=== PATIENT | female | born 1990 | race American Indian/Alaskan Native ===

== ENCOUNTER 2018-03-19 17:12 | Emergency (ER) | payer SELFPAY ==
[2018-03-19 17:21] VITALS: BP 144/67
[2018-03-19 17:43] LABS: Basophils % (Auto) 0.8 % (0.0-1.8); Eosinophils # (Auto) 0.1 K/mm3 (0.0-0.4); Eosinophils % (Auto) 1.8 % (0.0-4.3); Hematocrit 37.2 % (30.3-42.9); Hemoglobin 12.9 gm/dl (10.1-14.3); Lymphocytes # (Auto) 2.2 K/mm3 (1.2-5.4); Lymphocytes % (Auto) 41.2 % (13.4-35.0); Mean Corpuscular HGB Conc 35 % (30-34); Mean Corpuscular Hemoglobin 32 pg (28-32); Mean Corpuscular Volume 93 fl (79-97); Monocytes # (Auto) 0.3 K/mm3 (0.0-0.8); Monocytes % (Auto) 6.3 % (0.0-7.3); Platelet Count 238 K/mm3 (140-440); Red Blood Count 3.99 M/mm3 (3.65-5.03); Red Cell Distribution Width 12.6 % (13.2-15.2)
[2018-03-19 18:04] LABS: Bilirubin,Urine NEG (Negative); Blood,Urine SM (Negative); Color,Urine Straw (Yellow); Protein,Urine <15 mg/dL mg/dL (Negative); RBC,Urine < 1.0 /HPF (0.0-6.0); Urobilinogen,Urine < 2.0 mg/dL (<2.0); WBC,Urine < 1.0 /HPF (0.0-6.0)
--- NOTE | 2018-03-19 20:17 | Ultrasound Report ---
FINAL REPORT EXAM: US OB < = 14 WEEKS FETUS HISTORY: bleeding with TECHNIQUE: Transabdominal and transvaginal sonography of the pelvis. PRIORS: None. FINDINGS: There is an intrauterine containing a yolk sac, but no pole identified at this time. Ultrasound estimated gestational age is 5 weeks 5 days. Ultrasound estimated date of confinement is 14 November 2018. The right ovary measures 2.7 x 1.8 x 1.8 cm and is grossly unremarkable. The left ovary measures 3.1 x 2.2 x 3.1 cm and contains an ovoid, hypoechoic or complex cystic focus measuring approximately 1.6 cm. Remainder of uterus and adnexa grossly unremarkable. IMPRESSION: 1. Intrauterine of uncertain viability. Correlation with serial beta-hCG levels and follow-up ultrasound may help in further evaluation. 2. Probable functional cystic change in the left ovary. Clinical correlation and followup pelvic ultrasound in 6-10 weeks advised to document resolution.
--- NOTE | 2018-03-19 20:44 | Emergency Department Report ---
ED Female HPI - General Chief complaint: Vaginal Bleeding Stated complaint: 6 WEKKS PREG/BLEEDING Time Seen by Provider: 03/19/18 20:32 Source: patient Mode of arrival: Ambulatory Limitations: No Limitations - History of Present Illness Initial comments: Patient 27-year-old [place] female who presents for vaginal bleeding 2 days patient advised me in 6 weeks last menstrual period was 02/09/2019 patient is 78 symptoms including vaginal bleeding no pain mild back pain 3/10 or cramping no fever no chills bleeding described as light pink spotting. MD Complaint: vaginal bleeding Onset/Timin -: days(s) Radiation: non-radiating Severity: mild, moderate Severity scale (0 -10): 2 Quality: aching Consistency: intermittent Improves with: none Worsens with: none Are you Now?: Yes Last Menstrual Period: 02/09/18 EDC: 11/16/18 Associated Symptoms: vaginal bleeding. denies: vaginal discharge, abdominal pain, nausea/vomiting, fever/chills, headaches, loss of appetite, dysuria, hematuria, shortness of breath, syncope, weakness - Related Data Sexually active: Yes : 1 Para: 0 A: 0 Previous Rx's Medication Instructions Recorded Last Taken Type Acetaminophen 650 mg PO QID PRN #60 tablet 03/19/18 Unknown Rx Allergies Allergy/AdvReac Type Severity Reaction Status Date / Time No Known Allergies Allergy Verified 03/19/18 17:14 ED Review of Systems ROS: Stated complaint: 6 WEKKS PREG/BLEEDING Other details as noted in HPI Constitutional: denies: chills, fever Eyes: denies: eye pain, eye discharge, vision change ENT: denies: ear pain, throat pain Respiratory: denies: cough, shortness of breath, wheezing Cardiovascular: denies: chest pain, palpitations Endocrine: no symptoms reported Gastrointestinal: abdominal pain. denies: nausea, vomiting, diarrhea Genitourinary: other (pt defers vaginal exam to obgyn). denies: urgency, dysuria, frequency, hematuria, discharge, dyspareunia Musculoskeletal: denies: back pain, joint swelling, arthralgia Skin: denies: rash, lesions Neurological: as per HPI Psychiatric: denies: anxiety, depression Hematological/Lymphatic: denies: easy bleeding, easy bruising ED Past Medical Hx - Past Medical History Previous Medical History?: No - Surgical History Past Surgical History?: Yes Additional Surgical History: tonsilectomy - Social History Smoking Status: Never Smoker Substance Use Type: Alcohol - Medications Home Medications: Home Medications Medication Instructions Recorded Confirmed Last Taken Type Acetaminophen 650 mg PO QID PRN #60 tablet 03/19/18 Unknown Rx ED Physical Exam - General Limitations: No Limitations General appearance: alert, in no apparent distress - Head Head exam: Present: atraumatic, normocephalic - Eye Eye exam: Present: normal appearance - ENT ENT exam: Present: mucous membranes moist - Neck Neck exam: Present: normal inspection, full ROM. Absent: lymphadenopathy, thyromegaly - Respiratory Respiratory exam: Present: normal lung sounds bilaterally. Absent: respiratory distress - Cardiovascular Cardiovascular Exam: Present: regular rate, normal rhythm. Absent: systolic murmur, diastolic murmur, rubs, gallop - GI/Abdominal GI/Abdominal exam: Present: soft, tenderness (mild superpubic to deep palpation ), normal bowel sounds. Absent: distended, guarding, rebound, rigid, organomegaly, mass, bruit, pulsatile mass, hernia - Rectal Rectal exam: Present: deferred - External exam: Present: other (deferree per patient ) - Extremities Exam Extremities exam: Present: normal inspection, full ROM, normal capillary refill. Absent: tenderness - Back Exam Back exam: Present: normal inspection, full ROM. Absent: tenderness, CVA tenderness (R), CVA tenderness (L), muscle spasm, paraspinal tenderness, vertebral tenderness - Neurological Exam Neurological exam: Present: alert, oriented X3, CN II-XII intact, normal gait, reflexes normal - Psychiatric Psychiatric exam: Present: normal affect, normal mood - Skin Skin exam: Present: warm, dry, intact, normal color. Absent: rash ED Course Vital Signs 03/19/18 17:14 Temperature 98.6 F Pulse Rate 77 Respiratory 18 Rate Blood Pressure 144/67 O2 Sat by Pulse 100 Oximetry ED Medical Decision Making - Lab Data Result diagrams: 03/19/18 17:26 Laboratory Tests 03/19/18 03/19/18 03/19/18 17:23 17:26 17:26 WBC 5.3 RBC 3.99 Hgb 12.9 Hct 37.2 MCV 93 MCH 32 MCHC 35 H RDW 12.6 L Plt Count 238 Lymph % (Auto) 41.2 H [place] % (Auto) 6.3 Eos % (Auto) 1.8 Baso % (Auto) 0.8 Lymph # 2.2 [place] # 0.3 Eos # 0.1 Baso # 0.0 Seg Neutrophils % 49.9 Seg Neutrophils # 2.6 HCG, Quant 4617 H Urine Color Urine Turbidity Urine pH Ur Specific [place] Urine Protein Urine Glucose (UA) Urine Ketones Urine Blood Urine Nitrite Urine Bilirubin Urine Urobilinogen Ur Leukocyte Esterase Urine WBC (Auto) Urine RBC (Auto) Blood Type O POSITIVE Antibody Screen Negative 03/19/18 17:35 WBC RBC Hgb Hct MCV MCH MCHC RDW Plt Count Lymph % (Auto) [place] % (Auto) Eos % (Auto) Baso % (Auto) Lymph # [place] # Eos # Baso # Seg Neutrophils % Seg Neutrophils # HCG, Quant Urine Color Straw Urine Turbidity Clear Urine pH 7.0 Ur Specific [place] 1.002 L Urine Protein <15 mg/dl Urine Glucose (UA) Neg Urine Ketones Neg Urine Blood Sm Urine Nitrite Neg Urine Bilirubin Neg Urine Urobilinogen < 2.0 Ur Leukocyte Esterase Neg Urine WBC (Auto) < 1.0 Urine RBC (Auto) < 1.0 Blood Type Antibody Screen - Radiology Data Radiology results: report reviewed, image reviewed US: IUP of uncertain viability , recommend serial hcg and US, left ovarian cyst - Medical Decision Making CBC is normal abdominal pain is minimal ultrasound IUP unknown gestational viability O sac is identified hCG Quant 4700 left ovarian cyst noted UA is clean plan follow up with [facility] for serial hCGs and ultrasound discussed same with the patient including diagnosis of threatened miscarriage patient verbalizes understanding and agreement with same patient will be DC'd home stable condition at this time will return immediately should symptoms worsen Critical care attestation.: If time is entered above; I have spent that time in minutes in the direct care of this critically ill patient, excluding procedure time. ED Disposition Clinical Impression: Vaginal bleeding during , Threatened miscarriage in early Ovarian cyst Qualifiers: Laterality: left Qualified Code(s): N83.202 - Unspecified ovarian cyst, left side Disposition: DC TO HOME OR SELFCARE Is pt being admited?: No Does the pt Need Aspirin: No Condition: Good Instructions: Threatened Miscarriage (ED), Ovarian Cyst (ED) Prescriptions: Acetaminophen 650 mg PO QID PRN #60 tablet PRN Reason: pain Referrals: KWASI BIRMINGHAM MD [Staff Physician] - 3-5 Days Forms: Work/School Release Form(ED) Time of Disposition: 20:52
== END 2018-03-19 21:00 | disposition home or self-care (01) ==
LOC: ED 17:12
DX: O20.0 Threatened abortion (principal); O34.81 Maternal care for other abnormalities of pelvic organs, first trimester; N83.202 Unspecified ovarian cyst, left side; Z90.49 Acquired absence of other specified parts of digestive tract; Z3A.01 Less than 8 weeks gestation of pregnancy
CPT/HCPCS: 36415; 76801; 76817; 81001; 84702; 85025; 86850; 86900; 86901; 99284